=== PATIENT | female | born 1990 | race Two or more races ===

== ENCOUNTER 2021-11-09 13:56 | Emergency (ER) | payer MEDICAID ==
[~2021-11-09] VITALS: Ht 167.6 cm; Wt 63.5 kg
[2021-11-09 14:09] VITALS: BP 121/67
[2021-11-09] MEDS ORDERED: CYCL-837 PO (17:23)
[2021-11-09] MEDS ORDERED: IBUP800T27 PO (17:23)
== END 2021-11-09 17:47 | disposition home or self-care (01) ==
LOC: ER 13:56
DX: S46.911A Strain of unspecified muscle, fascia and tendon at shoulder and upper arm level, right arm, initial encounter (principal); F12.10 Cannabis abuse, uncomplicated; Z88.1 Allergy status to other antibiotic agents; X58.XXXA Exposure to other specified factors, initial encounter; Y93.89 Activity, other specified; Y92.89 Other specified places as the place of occurrence of the external cause; Y99.8 Other external cause status
CPT/HCPCS: 29105; 73030

== ENCOUNTER 2022-08-09 10:10 | Emergency (ER) | payer MEDICAID ==
[~2022-08-09] VITALS: Ht 167.6 cm; Wt 55.0 kg
[~2022-08-09 10:10] MED LIST: CYCL-837 PO; IBUP800T27 PO
[2022-08-09] MEDS ORDERED: KETOROLAC TROMETH 30 MG/ML 1ML VIAL IM ONE (13:15)
[2022-08-09] MEDS ORDERED: CYCL-839 PO (15:20)
[2022-08-09] MEDS ORDERED: ONDANSETRON ODT 4 MG TAB PO ONE (16:00)
[2022-08-09] MEDS ORDERED: MORPHINE SULFATE INJ 2 MG/ml SYRG IM ONE (16:00)
[2022-08-09] MEDS ORDERED: LIDO5DIS21 TOP (16:09)
[2022-08-09] MEDS ORDERED: IBUP600T28 PO (16:10)
[2022-08-09 16:34] VITALS: BP 109/54
== END 2022-08-09 16:43 | disposition home or self-care (01) ==
LOC: ER 10:10
DX: S39.012A Strain of muscle, fascia and tendon of lower back, initial encounter (principal); F12.10 Cannabis abuse, uncomplicated; Z88.1 Allergy status to other antibiotic agents; X58.XXXA Exposure to other specified factors, initial encounter; Y93.89 Activity, other specified; Y92.89 Other specified places as the place of occurrence of the external cause; Y99.8 Other external cause status
CPT/HCPCS: 72128; 72131; 96372; 99285; J1885; J2270; Q0162

== ENCOUNTER 2023-01-06 15:22 | Emergency (ER) | payer MEDICAID ==
[~2023-01-06] VITALS: Ht 167.6 cm; Wt 67.7 kg
[~2023-01-06 15:22] MED LIST changes: +CYCL-839 PO; +IBUP-1456 PO; +IBUP1TAB5 PO; -IBUP800T27 PO; +LIDO5DIS21 TOP
[2023-01-06 16:18] LABS: Urine Bacteria NONE SEEN /hpf (None Seen); Urine Blood 1+ /uL (Negative); Urine Mucus FEW (None Seen); Urine Specific Gravity 1.027 (1.001-1.035); Urine WBC 1 /hpf (0 - 5)
[2023-01-06 16:41] LABS: Basophils # (auto) 0 10 ^3/uL (0-0.2); Basophils % (auto) 0.1 % (0.0-2.0); Eosinophils # (auto) 0 10 ^3/uL (0-0.8); Eosinophils % (auto) 0.1 % (0.0-7.0); Hematocrit 43.4 % (36.0-46.0); Hemoglobin 14.9 g/dL (12.2-16.2); Lymphocytes # (auto) 2.1 10 ^3/uL (0.4-5.4); Lymphocytes % (auto) 15.7 % (10.0-50.0); Mean Corpuscular Hemoglobin 30.4 pg (28.0-32.0); Mean Corpuscular Hgb Conc. 34.3 g/dL (32.0-36.0); Mean Corpuscular Volume 88.5 fL (80.0-100.0); Monocytes # (auto) 0.6 10 ^3/uL (0-1.3); Monocytes % (auto) 4.6 % (0.0-12.0); Neutrophils # (auto) 10.6 10 ^3/uL (1.6-8.6); Neutrophils % (auto) 79.5 % (37.0-80.0); Nucleated Red Blood Cells % 0.1 %; Red Cell Distribution Width 13.8 % (11.8-14.3); White Blood Cell 13.3 10^3/uL (4.4-10.8)
[2023-01-06 16:58] LABS: Albumin 4.1 g/dL (3.4-5.0); BUN/Creatinine Ratio 18.3 (10.0-20.0); Calcium 9.1 mg/dL (8.5-10.1); Potassium 3.9 mmol/L (3.5-5.1)
[2023-01-06 17:01] LABS: Bilirubin, Total 0.3 mg/dL (0.2-1.0); Total Protein 7.4 g/dL (6.4-8.2)
[2023-01-06] MEDS ORDERED: NITR-52 PO (18:20)
[2023-01-06 19:49] VITALS: BP 103/74
== END 2023-01-06 19:52 | disposition home or self-care (01) ==
LOC: ER 15:22
DX: N39.0 Urinary tract infection, site not specified (principal); M06.9 Rheumatoid arthritis, unspecified; F12.10 Cannabis abuse, uncomplicated; Z88.1 Allergy status to other antibiotic agents
CPT/HCPCS: 36415; 71045; 80053; 81001; 84484; 85025; 93005